=== PATIENT | male | born 1990 | race Caucasian/White ===

== ENCOUNTER 2016-12-23 13:10 | Emergency (ER) | payer SELFPAY ==
[2016-12-23 13:21] VITALS: BP 131/64
--- NOTE | 2016-12-23 13:31 | EDM.PDOC ---
ED HPI GENERAL MEDICAL PROBLEM - General Chief Complaint: Neuro Symptoms/Deficits Stated Complaint: NUMBNESS ON LT SIDE Time Seen by Provider: 12/23/16 13:19 - History of Present Illness INITIAL COMMENTS - FREE TEXT/NARRATIVE: HISTORY AND PHYSICAL: History of present illness: Patient is a healthy 26-year-old male who presents with complaints of tingling and numbness to his left foot that went up to his knee and was circumferential, a patch on his soft tissue anterior humerus, and a patch/strip starting at his forehead and going down the middle of his head all of which started yesterday. He thought that his baseball Was on too tight and when he loosened it , the scalp area seemed to improve but the other areas persisted and are now better today. He has Had no weakness with this and no associated headache neck pain chest pain shortness of breath palpitations abdominal pain vomiting or diarrhea. Patient is denying any recent trauma and has no neurologic cardiac or pulmonary history. Patient states his symptoms have improved today but he was still worried. Review of systems: As per history of present illness and below otherwise all systems reviewed and negative. Past medical history: As per history of present illness and as reviewed below otherwise noncontributory. Surgical history: As per history of present illness and as reviewed below otherwise noncontributory. Social history: No reported history of drug or alcohol abuse. Family history: As per history of present illness and as reviewed below otherwise noncontributory. Physical exam: General: Well-developed well-nourished thin man who is nontoxic and speaking clearly and easily in the ER. I related to the ED without distress HEENT: Atraumatic, normocephalic, pupils reactive, negative for conjunctival pallor or scleral icterus, mucous membranes moist, throat clear, neck supple, nontender, trachea midline. EOMs are intact and there are no palpable scalp bony deformities or tenderness. Lungs: Clear to auscultation, breath sounds equal bilaterally, chest nontender. Heart: S1S2, regular, negative for clicks, rubs, or JVD. Abdomen: Soft, nondistended, nontender. Negative for masses or hepatosplenomegaly. Negative for costovertebral tenderness. Pelvis: Stable nontender. Genitourinary: Deferred. Rectal: Deferred. Extremities: Atraumatic, negative for cords or calf pain. Neurovascular unremarkable. Neuro: Awake, alert, oriented. Cranial nerves II through XII unremarkable. Cerebellum unremarkable. Motor and sensory unremarkable throughout. Exam nonfocal. Dorsi and plantar flexion is 5/5 bilaterally inclusive of the great toe patient has full range of motion of all extremities. I am unable to elicit any sensory deficits on my exam on the lower extremities the left upper extremity or the scalp 2 simple touch and pain.. He has good strength throughout all extremities and normal gait Back there are no midline step-offs tenderness defects of the thoracic or lumbar spine and no paraspinal tenderness on palpation Diagnostics: EKG CBC CMP troponin TSH UA UDS CT scan of the head--- Free T4 was ordered as TSH was elevated Therapeutics: [] Discussed with the patient at length the testing results and have offered him an observation admission. He states that as long as all the test results are normal with the exception of the thyroid tests she will follow up in the clinic. He does not choose for admission at this time and I advised him of the risks and reasons to return and to start a Journal of his symptoms Impression: Paresthesias stable etiology unclear Definitive disposition and diagnosis as appropriate pending reevaluation and review of above. - Related Data Allergies Allergy/AdvReac Type Severity Reaction Status Date / Time No Known Allergies Allergy Verified 12/23/16 13:21 Home Meds: Home Meds . [No Known Home Meds] 12/23/16 [History] Past Medical History - Infectious Disease History Infectious Disease History: Reports: Chicken pox Social & Family History - Family History Family Medical History: Noncontributory - Tobacco Use Smoking Status *Q: Current Every Day Smoker Years of Tobacco use: 8 Packs/Tins Daily: 0.5 - Caffeine Use Caffeine Use: Reports: Energy drinks Caffeine Use Comment: 2drinks/day - Alcohol Use Days Per Week of Alcohol Use: 2 Number of Drinks Per Day: 3 Total Drinks Per Week: 6 - Recreational Drug Use Recreational Drug Use: No ED ROS GENERAL - Review of Systems Review Of Systems: ROS reveals no pertinent complaints other than HPI. ED EXAM, GENERAL - Physical Exam Exam: See Below (See dictation) Course - Vital Signs Last Recorded V/S: Last Vital Signs Temp 36.9 C 12/23/16 13:15 Pulse 95 12/23/16 13:15 Resp 17 12/23/16 13:15 BP 131/64 12/23/16 13:15 Pulse Ox 100 12/23/16 13:15 - Orders/Labs/Meds Orders: Active Orders 24 hr Category Date Time Status EKG Documentation Completion [RC] STAT Care 12/23/16 13:28 Active Head wo Cont [CT] Stat Exams 12/23/16 13:29 Taken T4 FREE [CHEM] Stat Lab 12/23/16 15:24 Ordered Labs: Laboratory Tests 12/23/16 12/23/16 12/23/16 Range/Units 13:44 13:44 13:44 WBC 3.33 L (4.0-11.0) K/uL RBC 4.90 (4.50-5.90) M/uL Hgb 14.5 (13.0-17.0) g/dL Hct 43.2 (38.0-50.0) % MCV 88.2 (80.0-98.0) fL MCH 29.6 (27.0-32.0) pg MCHC 33.6 (31.0-37.0) g/dL RDW Std Deviation 42.4 (28.0-62.0) fl RDW Coeff of Mino 13 (11.0-15.0) % Plt Count 187 (150-400) K/uL MPV 9.80 (7.40-12.00) fL Neut % (Auto) 33.1 L (48.0-80.0) % Lymph % (Auto) 47.4 H (16.0-40.0) % Ceiba % (Auto) 12.6 (0.0-15.0) % Eos % (Auto) 6.6 (0.0-7.0) % Baso % (Auto) 0.3 (0.0-1.5) % Neut # (Auto) 1.1 L (1.4-5.7) K/uL Lymph # (Auto) 1.6 (0.6-2.4) K/uL Ceiba # (Auto) 0.4 (0.0-0.8) K/uL Eos # (Auto) 0.2 (0.0-0.7) K/uL Baso # (Auto) 0.0 (0.0-0.1) K/uL Nucleated RBC % 0.0 /100WBC Nucleated RBCs # 0 K/uL Sodium 142 (136-146) mmol/L Potassium 3.9 (3.5-5.1) mmol/L Chloride 107 (98-110) mmol/L Carbon Dioxide 25 (21-31) mmol/L BUN 11 (6.0-23.0) mg/dL Creatinine 1.2 (0.6-1.5) mg/dL Est Cr Clr Drug Dosing 88.75 mL/min Estimated GFR (MDRD) > 60.0 ml/min Glucose 99 (60-110) mg/dL Calcium 9.5 (8.8-10.8) mg/dL Total Bilirubin 0.6 (0.1-1.5) mg/dL AST 21 (5-40) IU/L ALT 19 (8-54) IU/L Alkaline Phosphatase 57 (40-150) Troponin I < 0.10 (0.0-0.29) NG/ML Total Protein 7.6 (6.0-8.0) g/dL Albumin 4.5 (3.5-5.0) g/dL Globulin 3.1 (2.0-3.5) g/dL Albumin/Globulin Ratio 1.5 (1.3-2.8) TSH 3rd Generation 5.19 H (0.47-5.0) uIU/mL Departure - Departure Time of Disposition: 15:33 Disposition: Home, Self-Care 01 Condition: good Clinical Impression: Paresthesia Forms: ED Department Discharge Additional Instructions: The following information is given to patients seen in the emergency department who are being discharged to home. This information is to outline your options for follow-up care. We provide all patients seen in our emergency department with a follow-up referral. The need for follow-up, as well as the timing and circumstances, are variable depending upon the specifics of your emergency department visit. If you don't have a primary care physician on staff, we will provide you with a referral. We always advise you to contact your personal physician following an emergency department visit to inform them of the circumstance of the visit and for follow-up with them and/or the need for any referrals to a consulting specialist. The emergency department will also refer you to a specialist when appropriate. This referral assures that you have the opportunity for followup care with a specialist. All of these measure are taken in an effort to provide you with optimal care, which includes your followup. Under all circumstances we always encourage you to contact your private physician who remains a resource for coordinating your care. When calling for followup care, please make the office aware that this follow-up is from your recent emergency room visit. If for any reason you are refused follow-up, please contact the [facility] emergency department at and ask to speak to the emergency department charge nurse. [facility] Primary care- [place] [address] These call and be seen in the clinic this week to evaluate your thyroid tests as well as discuss your symptoms of today. Please return to ER as needed and as discussed. Please take one 325 enteric-coated aspirin every day until you're seen in the clinic. - My Orders Last 24 Hours: My Active Orders 12/23/16 13:28 EKG Documentation Completion [RC] STAT 12/23/16 13:29 Head wo Cont [CT] Stat 12/23/16 15:24 T4 FREE [CHEM] Stat - Assessment/Plan Last 24 Hours: My Active Orders 12/23/16 13:28 EKG Documentation Completion [RC] STAT 12/23/16 13:29 Head wo Cont [CT] Stat 12/23/16 15:24 T4 FREE [CHEM] Stat
[2016-12-23 14:21] LABS: CHLORIDE,CL 107 mmol/L (98-110); SODIUM,NA 142 mmol/L (136-146)
--- NOTE | 2016-12-24 18:34 | CT ---
EXAM DATE: 12/23/16 PATIENT'S AGE: 26 Patient: LAWSON VERAS Facility: [place], [place] Site . Site : 1990 Study: CT Head [id number]/26/2017 1:58:58 PM Ordering Physician: Pedro Armendariz Final Report: HISTORY: Head numbness. TECHNIQUE: Noncontrast head CT. COMPARISON: No prior. FINDINGS: There is no acute intracranial hemorrhage. No acute ischemic infarct. No mass or mass effect. No midline shift. No hydrocephalus. No loss of matias-white differentiation. Mastoid air cells appear clear. There is mucosal thickening involving the maxillary sinuses and multiple ethmoid air cells. Sphenoid sinuses are clear. There is no acute skull fracture. IMPRESSION: No acute intracranial disease. Dictated by Artur Sharif MD @ 12/23/2016 2:20:30 PM Dictated by: Artur Sharif MD @ 12/23/2016 14:20:39 (Electronic Signature) Report Signed by Proxy and Original Signed Document filed in the Medical Record. [facility]
== END 2016-12-23 15:44 | disposition home or self-care (01) ==
LOC: MERGE 13:10 → MW.ED 13:10
DX: R20.9 Unspecified disturbances of skin sensation (principal); F17.210 Nicotine dependence, cigarettes, uncomplicated
CPT/HCPCS: 36415; 70450; 70450-26; 80053; 84439; 84443; 84484; 85025; 93005; 99284; 99284-25

== ENCOUNTER 2016-12-24 20:29 | Emergency (ER) | payer SELFPAY ==
--- NOTE | 2016-12-24 21:18 | EDM.PDOC ---
ED HPI GENERAL MEDICAL PROBLEM - General Chief Complaint: Neuro Symptoms/Deficits Stated Complaint: NUMBNESS OF LEFT SIDE Time Seen by Provider: 12/24/16 21:12 Source of Information: Reports: Patient - History of Present Illness INITIAL COMMENTS - FREE TEXT/NARRATIVE: HISTORY AND PHYSICAL: History of present illness: [] Patient presents with similar complaint as yesterday, at that time he did have full laboratory workup and head CT all are normal except his TSH is elevated with a normal T4 level He complains of tingling sensation on the left side in the same distribution, is completely normal neurologic examination with no sensory or motor loss or weakness. No new symptomology Patient is quite anxious and concerned that he has had a stroke Has no other symptomology no fever nausea vomiting diarrhea constipation chest pain shortness breath headache dizziness or palpitation no bowel or urine symptoms He was offered admission yesterday when he was seen by Dr. Paredes, again he declines. The patient speaks fairly fluent Chinese although he did request a retort forker we did use Katherine Schulz unabating to translate in Australian at the patient's request. Weight but also understand and respond to me in Chinese he had no further questions and voiced understanding both in Chinese and Australian. I recommended that he followup with primary care or return if symptoms persist or worsen or new symptoms develop Review of systems: As per history of present illness and below otherwise all systems reviewed and negative. Past medical history: As per history of present illness and as reviewed below otherwise noncontributory. Surgical history: As per history of present illness and as reviewed below otherwise noncontributory. Social history: No reported history of drug or alcohol abuse. Family history: As per history of present illness and as reviewed below otherwise noncontributory. Physical exam: HEENT: Atraumatic, normocephalic, pupils reactive, negative for conjunctival pallor or scleral icterus, mucous membranes moist, throat clear, neck supple, nontender, trachea midline. Lungs: Clear to auscultation, breath sounds equal bilaterally, chest nontender. Heart: S1S2, regular, negative for clicks, rubs, or JVD. Abdomen: Soft, nondistended, nontender. Negative for masses or hepatosplenomegaly. Negative for costovertebral tenderness. Pelvis: Stable nontender. Genitourinary: Deferred. Rectal: Deferred. Extremities: Atraumatic, negative for cords or calf pain. Neurovascular unremarkable. Neuro: Awake, alert, oriented. Cranial nerves II through XII unremarkable. Cerebellum unremarkable. Motor and sensory unremarkable throughout. Exam nonfocal. Diagnostics: [] Lab on file Head CT on file Therapeutics: [] None Followup with primary care Impression: [] Tingling/paresthesias Subclinical hypothyroidism-perhaps he may benefit from treatment Definitive disposition and diagnosis as appropriate pending reevaluation and review of above. - Related Data Allergies Allergy/AdvReac Type Severity Reaction Status Date / Time No Known Allergies Allergy Verified 12/24/16 20:33 Home Meds: Home Meds . [No Known Home Meds] 12/28/14 [History] . [No Known Home Meds] 12/23/16 [History] Past Medical History HEENT History: Reports: None Cardiovascular History: Reports: None Respiratory History: Reports: None Gastrointestinal History: Reports: None Genitourinary History: Reports: None Musculoskeletal History: Reports: None Neurological History: Reports: None Psychiatric History: Reports: None Endocrine/Metabolic History: Reports: None Oncologic (Cancer) History: Reports: None Dermatologic History: Reports: None - Infectious Disease History Infectious Disease History: Reports: None Social & Family History - Family History Family Medical History: Noncontributory - Tobacco Use Smoking Status *Q: Current Every Day Smoker Years of Tobacco use: 6 Packs/Tins Daily: 0.5 - Caffeine Use Caffeine Use: Reports: Energy drinks Caffeine Use Comment: 2drinks/day - Alcohol Use Days Per Week of Alcohol Use: 2 Number of Drinks Per Day: 3 Total Drinks Per Week: 6 - Recreational Drug Use Recreational Drug Use: No Drug Use in Last 12 Months: No Recreational Drug Type: Reports: Marijuana/Hashish ED ROS GENERAL - Review of Systems Review Of Systems: ROS reveals no pertinent complaints other than HPI. ED EXAM, GENERAL - Physical Exam Exam: See Below Course - Vital Signs Last Recorded V/S: Last Vital Signs Temp 36.7 C 12/24/16 20:33 Pulse 83 12/24/16 20:33 Resp 16 12/24/16 20:33 BP 129/85 12/24/16 20:33 Pulse Ox 97 12/24/16 20:33 Departure - Departure Time of Disposition: 21:17 Disposition: Home, Self-Care 01 Condition: good Clinical Impression: Paresthesia, Subclinical hypothyroidism Forms: ED Department Discharge Additional Instructions: Return if new concerning symptomatology develops or symptoms persist or worsen Establish primary care to review thyroid labs [facility] - Primary Care [address] [place] [id number] The following information is given to patients seen in the emergency department who are being discharged to home. This information is to outline your options for follow-up care. We provide all patients seen in our emergency department with a follow-up referral. The need for follow-up, as well as the timing and circumstances, are variable depending upon the specifics of your emergency department visit. If you don't have a primary care physician on staff, we will provide you with a referral. We always advise you to contact your personal physician following an emergency department visit to inform them of the circumstance of the visit and for follow-up with them and/or the need for any referrals to a consulting specialist. The emergency department will also refer you to a specialist when appropriate. This referral assures that you have the opportunity for follow-up care with a specialist. All of these measure are taken in an effort to provide you with optimal care, which includes your follow-up. Under all circumstances we always encourage you to contact your private physician who remains a resource for coordinating your care. When calling for follow-up care, please make the office aware that this follow-up is from your recent emergency room visit. If for any reason you are refused follow-up, please contact the [facility] emergency department at and asked to speak to the emergency department charge nurse.
[2016-12-24 21:33] VITALS: BP 95/48
== END 2016-12-24 21:34 | disposition home or self-care (01) ==
LOC: MW.ED 20:29
DX: R20.2 Paresthesia of skin (principal); E02 Subclinical iodine-deficiency hypothyroidism; F17.210 Nicotine dependence, cigarettes, uncomplicated
CPT/HCPCS: 99282; 99283

== ENCOUNTER 2020-08-18 07:13 | Emergency (ER) | payer SELFPAY ==
--- NOTE | 2020-08-18 07:48 | EDM.PDOC ---
ED HPI GENERAL MEDICAL PROBLEM - General Chief Complaint: General Stated Complaint: VOMITING Time Seen by Provider: 08/18/20 07:39 Source of Information: Reports: Patient - History of Present Illness INITIAL COMMENTS - FREE TEXT/NARRATIVE: Patient is a 29-year-old male who presents today for nausea vomiting and palpitations. Patient states for the past few weeks she is getting sensation and he has to vomit. Once episode of vomiting feels like his heart palpating fast but wants to vomit resolve he feels a lot better. Patient also reports that after vomiting he does occasionally feel dizzy as if the room was spinning. Patient denies any travels or eating new foods antibiotic use or drug use. Patient denies any shortness of breath fever chills. Onset: Today - Related Data Allergies Allergy/AdvReac Type Severity Reaction Status Date / Time No Known Allergies Allergy Verified 08/18/20 07:26 Home Meds: Home Meds . [No Known Home Meds] 12/28/14 [History] . [No Known Home Meds] 12/23/16 [History] Past Medical History - Past Health History Medical/Surgical History: Denies Medical/Surgical History HEENT History: Reports: None Cardiovascular History: Reports: None Respiratory History: Reports: None Gastrointestinal History: Reports: None Genitourinary History: Reports: None Musculoskeletal History: Reports: None Neurological History: Reports: None Psychiatric History: Reports: None Endocrine/Metabolic History: Reports: None Oncologic (Cancer) History: Reports: None Dermatologic History: Reports: None - Infectious Disease History Infectious Disease History: Reports: None Social & Family History - Family History Family Medical History: No Pertinent Family History - Caffeine Use Caffeine Use: Reports: Energy Drinks Caffeine Use Comment: 2drinks/day - Recreational Drug Use Recreational Drug Use: No ED ROS GENERAL - Review of Systems Review Of Systems: Comprehensive ROS is negative, except as noted in HPI. Constitutional: Reports: No Symptoms HEENT: Reports: No Symptoms Respiratory: Reports: No Symptoms Cardiovascular: Reports: No Symptoms Endocrine: Reports: No Symptoms GI/Abdominal: Reports: Nausea, Vomiting : Reports: No Symptoms Musculoskeletal: Reports: No Symptoms Skin: Reports: No Symptoms Neurological: Reports: Dizziness Psychiatric: Reports: No Symptoms Hematologic/Lymphatic: Reports: No Symptoms Immunologic: Reports: No Symptoms ED EXAM, GENERAL - Physical Exam Exam: See Below Exam Limited By: No Limitations General Appearance: Alert, No Apparent Distress Eye Exam: Bilateral Eye: EOMI, PERRL Head: Atraumatic Respiratory/Chest: No Respiratory Distress Cardiovascular: Normal Peripheral Pulses, Regular Rate, Rhythm GI/Abdominal: Normal Bowel Sounds, Soft, Non-Tender Extremities: Normal Range of Motion Neurological: Alert, Oriented, Normal Cognition, Normal Gait #1 Interpretation EKG Date: 08/18/20 Time: 07:55 Rhythm: NSR Rate (Beats/Min): 72 ST-T: Normal Course - Vital Signs Text/Narrative:: Time 8:58 AM Patient remained asymptomatic. Patient tolerating p.o. Patient EKG was reviewed. Patient will be discharged home to follow-up with primary care and possible GI as outpatient. Patient given results fully understands. Last Recorded V/S: Last Vital Signs Temp 97.4 F 08/18/20 07:26 Pulse 78 08/18/20 08:15 Resp 16 08/18/20 08:15 BP 113/68 08/18/20 08:15 Pulse Ox 98 08/18/20 08:15 - Orders/Labs/Meds Orders: Active Orders 24 hr Category Date Time Status EKG Documentation Completion [RC] STAT Care 08/18/20 07:44 Active Labs: Laboratory Tests 08/18/20 08/18/20 Range/Units 08:03 08:03 WBC 3.61 L (4.0-11.0) K/uL RBC 4.87 (4.50-5.90) M/uL Hgb 14.4 (13.0-17.0) g/dL Hct 42.9 (38.0-50.0) % MCV 88.1 (80.0-98.0) fL MCH 29.6 (27.0-32.0) pg MCHC 33.6 (31.0-37.0) g/dL RDW Std Deviation 42.4 (28.0-62.0) fl RDW Coeff of Mino 13 (11.0-15.0) % Plt Count 182 (150-400) K/uL MPV 10.20 (7.40-12.00) fL Neut % (Auto) 49.3 (48.0-80.0) % Lymph % (Auto) 37.1 (16.0-40.0) % [place] % (Auto) 8.9 (0.0-15.0) % Eos % (Auto) 4.4 (0.0-7.0) % Baso % (Auto) 0.3 (0.0-1.5) % Neut # (Auto) 1.8 (1.4-5.7) K/uL Lymph # (Auto) 1.3 (0.6-2.4) K/uL [place] # (Auto) 0.3 (0.0-0.8) K/uL Eos # (Auto) 0.2 (0.0-0.7) K/uL Baso # (Auto) 0.0 (0.0-0.1) K/uL Nucleated RBC % 0.0 /100WBC Nucleated RBCs # 0 K/uL Sodium 142 (136-148) mmol/L Potassium 3.5 (3.5-5.1) mmol/L Chloride 105 (98-107) mmol/L Carbon Dioxide 30.2 (21.0-32.0) mmol/L BUN 12 (7.0-18.0) mg/dL Creatinine 1.0 (0.8-1.3) mg/dL Est Cr Clr Drug Dosing 110.34 mL/min Estimated GFR (MDRD) > 60.0 ml/min Glucose 93 (74-106) mg/dL Calcium 9.1 (8.5-10.1) mg/dL Magnesium 2.0 (1.8-2.4) mg/dL Total Bilirubin 0.5 (0.2-1.0) mg/dL AST 18 (15-37) IU/L ALT 28 (14-63) IU/L Alkaline Phosphatase 60 (46-116) U/L Creatine Kinase 136 (26-308) U/L Total Protein 7.7 (6.4-8.2) g/dL Albumin 4.3 (3.4-5.0) g/dL Globulin 3.4 (2.6-4.0) g/dL Albumin/Globulin Ratio 1.3 (0.9-1.6) Lipase 202 (73-393) U/L Departure - Departure Time of Disposition: 08:58 Disposition: Home, Self-Care 01 Condition: Good Clinical Impression: Nausea & vomiting, Palpitation - Discharge Information *PRESCRIPTION DRUG MONITORING PROGRAM REVIEWED*: Not Applicable *COPY OF PRESCRIPTION DRUG MONITORING REPORT IN PATIENT [place]: Not Applicable Instructions: Palpitations, [id number], Nausea and Vomiting, Adult Referrals: PCP,None [Primary Care Provider] - Forms: ED Department Discharge Additional Instructions: The following information is given to patients seen in the emergency department who are being discharged to home. This information is to outline your options for follow-up care. We provide all patients seen in our emergency department with a follow-up referral. The need for follow-up, as well as the timing and circumstances, are variable depending upon the specifics of your emergency department visit. If you don't have a primary care physician on staff, we will provide you with a referral. We always advise you to contact your personal physician following an emergency department visit to inform them of the circumstance of the visit and for follow-up with them and/or the need for any referrals to a consulting specialist. The emergency department will also refer you to a specialist when appropriate. This referral assures that you have the opportunity for follow-up care with a specialist. All of these measure are taken in an effort to provide you with optimal care, which includes your follow-up. Under all circumstances we always encourage you to contact your private physician who remains a resource for coordinating your care. When calling for follow-up care, please make the office aware that this follow-up is from your recent emergency room visit. If for any reason you are refused follow-up, please contact the [facility] Emergency Department at and asked to speak to the emergency department charge nurse. Please follow up with your primary care physician. If you do not have a primary care physician, see below: [facility] [address] [place] [id number] [facility] [address] [place] [id number] Return to the ED if you have any difficulty tolerating food or water. Palpitations chest pain or episodes of passing out. Sepsis Event Note (ED) - Evaluation Sepsis Screening Result: No Definite Risk - Focused Exam Vital Signs: Vital Signs Temp Pulse Resp BP Pulse Ox 08/18/20 08:15 78 16 113/68 98 08/18/20 07:26 97.4 F 77 16 135/72 100 - My Orders Last 24 Hours: My Active Orders 08/18/20 07:44 EKG Documentation Completion [RC] STAT - Assessment/Plan Last 24 Hours: My Active Orders 08/18/20 07:44 EKG Documentation Completion [RC] STAT Plan: Patient is a 29-year-old male who presents today for nausea vomiting palpitations. Patient has some symptoms moment symptoms present for the past few weeks. Will obtain labs EKG and reassess.
[2020-08-18 08:45] LABS: BLOOD UREA NITROGEN,BUN 12 mg/dL (7.0-18.0); CARBON DIOXIDE,CO2 30.2 mmol/L (21.0-32.0); CHLORIDE,CL 105 mmol/L (98-107); GLUCOSE RANDOM 93 mg/dL (74-106); LIPASE 202 U/L (73-393); POTASSIUM,K 3.5 mmol/L (3.5-5.1); SODIUM,NA 142 mmol/L (136-148)
[2020-08-18 11:00] VITALS: BP 96/68; PULSE 68
== END 2020-08-18 09:22 | disposition home or self-care (01) ==
LOC: MW.ED 07:13
DX: R11.2 Nausea with vomiting, unspecified (principal); R00.2 Palpitations
CPT/HCPCS: 36415; 80053; 82550; 83690; 83735; 85025; 93005; 93010; 99283; 99285-25